=== PATIENT | male | born 1985 | race American Indian/Alaskan Native ===

== ENCOUNTER 2018-09-23 20:52 | Emergency (ER) | payer OTHER ==
[2018-09-23] MEDS ORDERED: IBUPROFEN PO ONE (21:25)
[2018-09-23 21:56] LABS: Bilirubin,Urine NEG (Negative); Blood,Urine MOD (Negative); Color,Urine Amber (Yellow); Hyaline Casts,Urine 1 /LPF; Mucus,Urine FEW /HPF; Urobilinogen,Urine < 2.0 mg/dL (<2.0)
--- NOTE | 2018-09-23 23:00 | Ultrasound Report ---
PROCEDURE: US TESTICULAR DOPPLER COMP TECHNIQUE: Real-time castro-scale and color flow Doppler sonography in multiple planes of the scrotum, testicles, and epididymes was performed. Velocity spectral waveform analysis and color Doppler imagi ng of the arterial inflow and venous outflow of the testicles was performed with image documentation. HISTORY: swollen testicles COMPARISONS: None . FINDINGS: RIGHT TESTICLE: Size: 4.3 x 2.4 x 2.7 cm . Appearance: Normal size and echotexture . Arterial blood flow: Normal spectral waveforms, flow velocities and color flow images.. Venous blood flow: Normal spectral waveforms and color flow images. Right epididymis: Normal size and echotexture . Hydrocele: None . LEFT TESTICLE Size: 3.8 x 1.6 x 2.3 cm . Appearance: Normal size and echotexture . Arterial blood flow: Normal spectral waveforms, flow velocities and color flow images.. Venous blood flow: Normal spectral waveforms and color flow images. Left epididymis: Normal size and echotexture . Hydrocele: None . There is diffuse thickening of scrotal skin and subcutaneous tissues with evidence of soft tissue air . 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 This document is electronically signed by Oli Ochoa MD., September 23 2018 10:59:01 PM ET
[2018-09-23] MEDS ORDERED: NACL 0.9% 1000 ML 1,000 ML IV ONE ×2 (23:08→23:23)
[2018-09-23] MEDS ORDERED: ZOSYN/NS 3.375GM/50ML 3.375 GM/50 ML BAG IV ONE (23:09)
[2018-09-23] MEDS ORDERED: MORPHINE IV ONE (23:19)
[2018-09-23] MEDS ORDERED: ZOFRAN IV ONE (23:20)
[2018-09-23] MEDS ORDERED: VANCOMYCIN/NS 1 GM/250 ML 1 GM/250 ML BAG IV ONE (23:22)
--- NOTE | 2018-09-23 23:32 | Emergency Department Report ---
HPI - General Chief Complaint: Urogenital-Male Time Seen by Provider: 09/23/18 23:19 - HPI HPI: 33-year-old -[place] male presents to ED with severe testicular pain, scrotal swelling, fever, not feeling well. His symptoms started yesterday, he was still a significant severity. Patient is not taking any medications for his symptoms. He states movement as an exacerbating factors, no alleviating factors. He denies any past medical history. Denies any recent travel, no sick contacts. ED Past Medical Hx - Past Medical History Previous Medical History?: No - Surgical History Past Surgical History?: No - Social History Smoking Status: Never Smoker Substance Use Type: None ED Review of Systems ROS: Stated complaint: SWOLLEN GROIN Other details as noted in HPI Comment: All other systems reviewed and negative Constitutional: denies: no symptoms reported Gastrointestinal: abdominal pain, nausea. denies: vomiting Genitourinary: testicular pain, testicular mass. denies: urgency Physical Exam - Physical Exam Vital Signs: Vital Signs 09/23/18 09/23/18 21:05 21:34 Temperature 99.7 F H Pulse Rate 129 H Respiratory 20 20 Rate Blood Pressure 92/48 [Right] O2 Sat by Pulse 100 Oximetry Physical Exam: - General Limitations: No Limitations General appearance: alert, in no apparent distress. - Head Head exam: Present: atraumatic, normocephalic - Eye Eye exam: Present: normal appearance - ENT ENT exam: Present: mucous membranes moist - Neck Neck exam: Present: normal inspection - Respiratory Respiratory exam: Present: normal lung sounds bilaterally. Absent: respiratory distress - Cardiovascular Cardiovascular Exam: Present: normal rhythm, tachycardia. Absent: systolic murmur, diastolic murmur, rubs, gallop - GI/Abdominal GI/Abdominal exam: Present: soft, normal bowel sounds - Extremities Exam Extremities exam: Present: normal inspection - Back Exam Back exam: Present: normal inspection - Neurological Exam Neurological exam: Present: alert, oriented X3 - Psychiatric Psychiatric exam: normal affect and mood - Skin Skin exam: Present: scrotal swelling, tenderness. ED Course Vital Signs 09/23/18 09/23/18 21:05 21:34 Temperature 99.7 F H Pulse Rate 129 H Respiratory 20 20 Rate Blood Pressure 92/48 [Right] O2 Sat by Pulse 100 Oximetry ED Medical Decision Making - Lab Data Result diagrams: 09/23/18 23:22 04/12/19 23:22 - Medical Decision Making no urology available at [facility], patient txfr to Dr. ESTELA Sharpe, accepting UROLOGIST. ER TO ER. Critical care attestation.: If time is entered above; I have spent that time in minutes in the direct care of this critically ill patient, excluding procedure time. ED Disposition Clinical Impression: Nora gangrene Disposition: [id number]/TX-[id number] ANOTHER TYPE HLTHCARE Is pt being admited?: No Does the pt Need Aspirin: No Condition: Stable Referrals: ANA RUSSO MD [Primary Care Provider] - 3-5 Days
[2018-09-23 23:47] VITALS: BP 95/55
[2018-09-23 23:57] LABS: Albumin 3.7 g/dL (3.9-5); Calcium 9.1 mg/dL (8.4-10.2)
[2018-09-24 00:06] LABS: Hematocrit 38.9 % (35.5-45.6); Hemoglobin 13.7 gm/dl (11.8-15.2); Mean Corpuscular HGB Conc 35 % (32-34); Mean Corpuscular Volume 82 fl (84-94); Platelet Count 167 K/mm3 (140-440); Red Blood Count 4.76 M/mm3 (3.65-5.03); Red Cell Distribution Width 14.5 % (13.2-15.2)
[2018-09-24] MEDS ORDERED: NACL 0.9% 1000 ML 1,000 ML IV ONE (00:27)
[2018-09-24 03:19] LABS: Band Neutrophils # (Manual) 10.4 K/mm3; Basophils % (Manual) 0 % (0.0-1.8); Eosinophils % (Manual) 0 % (0.0-4.3); Total Cells Counted 100
[2018-09-24 03:20] LABS: Anisocytosis 1+; Dohle Bodies Few
== END 2018-09-24 01:10 | disposition other institution (70) ==
LOC: ED 20:52
DX: N49.3 Fournier gangrene (principal)
CPT/HCPCS: 36415; 80053; 81001; 82140; 85007; 85025; 87040; 93975; 96365; 96367; 96375; 99285; J2270; J2405; J2543; J3370; J7030